=== PATIENT | male | born 1955 | race Caucasian/White ===

== ENCOUNTER 2017-07-15 07:59 | Outpatient (CLI) | payer BC ==
[2017-07-15 11:42] LABS: Cardiac Risk 4.2 (Less than 4.5)
== END 2017-07-15 08:00 | disposition home or self-care (01) ==
LOC: NAVSJIPCSP 07:59
PROVIDERS: ATTEND Internal Medicine
DX: E78.5 Hyperlipidemia, unspecified (principal)
CPT/HCPCS: 36415; 80061

== ENCOUNTER 2018-10-31 16:03 | Outpatient (CLI) | payer BC ==
--- NOTE | 2018-10-31 16:46 | RAD ---
THREE VIEWS RIGHT SHOULDER: 10/31/18 HISTORY: Right shoulder pain. AP internally, externally and scapular Y-views right shoulder obtained. Three views right shoulder demonstrate no evidence of right shoulder fractures, subluxations or bony lesions. IMPRESSION: Normal three views right shoulder. POS: [facility]
== END 2018-10-31 16:04 | disposition home or self-care (01) ==
LOC: NAV RAD 16:03
PROVIDERS: ATTEND Internal Medicine
DX: M25.511 Pain in right shoulder (principal)